=== PATIENT | male | born 1995 | race Caucasian/White ===

== ENCOUNTER 2022-03-09 17:53 | Emergency (ER) | payer OTHER, MEDICAID, SELFPAY ==
[2022-03-09 17:58] VITALS: BP 110/57; PULSE 98; RESP 20; TEMP 37.1; O2SAT 96
== END 2022-03-09 23:26 | disposition left against medical advice (07) ==
PROVIDERS: Emergency Provider Emergency Medicine; Family Provider Family Medicine; PCP Family Medicine
CPT/HCPCS: 99281

== ENCOUNTER 2024-09-04 23:35 | Emergency (ER) | payer SELFPAY ==
[2024-09-04 23:47] VITALS: BP 124/71; PULSE 73; RESP 18; TEMP 36.9; O2SAT 100; BMI 21.8
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
--- NOTE | 2024-09-05 00:33 | PC.NURSE ---
pt was brought to the room at 2355 and went immediately to the bathroom, after being in the bath room for several minutes Dr Deng knocked on the bathroom door and pt stated he was okay, pt came out of the bathroom at 0020. pt was sitting in the room attempting to complete a form for registration pt was observed to be nodding off, this nurse asked the pt why he was so sleepy now as he wasn't earlier. pt stated I'm not I'm just trying to fill out this form, this nurse turned to walk out of the room when the pt yelled get the fuck out of here. the pt was then told that behavior would not be tolerated and he could leave. pt then stood at started yelling fuck you, you think I'm on drugs fuck this place, pt gathered his stuff and threw the pin in his hand and walked out the door
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
== END 2024-09-05 00:41 | disposition left against medical advice (07) ==
PROVIDERS: Emergency Provider Emergency Medicine; Family Provider Family Medicine; PCP Family Medicine
DX: R22.0 Localized swelling, mass and lump, head (principal); R51.9 Headache, unspecified; F10.129 Alcohol abuse with intoxication, unspecified; Z53.29 Procedure and treatment not carried out because of patient's decision for other reasons
CPT/HCPCS: 99281